=== PATIENT | female | born 1990 | race Caucasian/White ===

== ENCOUNTER 2017-01-23 16:31 | Emergency (ER) | payer OTHER ==
--- NOTE | 2017-01-27 13:43 | ER ---
ADMIT: 01/23/2017 RM/LOC: ER [facility] MR#: [id number] [address] [id number] NAJMA STEVENS [address] [place] [address] Emergency Room Report SEX: F AGE: 26 : 1990 DATE: 01/23/2017 HISTORY OF PRESENT ILLNESS: The patient is a 26-year-old 13-week female with a migraine headache. She states it is a typical headache that started at 7 a.m. yesterday. She has had it all day today. She reports having some fever, but she states she has been treated for UTI and is taking Macrobid. She gets chronic UTIs with this and has been seen for this in the past week. She called the OB nurse of Dr. Cool's practice and was told by the middle school band teacher to come to the emergency room for hydration and possibly more medication to help with the headache. The patient drove herself to the emergency room. She is accompanied by a daughter. PHYSICAL EXAMINATION: VITAL SIGNS: 120/71, heart rate 100, respirations 16, temp 99, O2 sats 97%. GENERAL: She is alert, mildly anxious. HEENT: She does have some photophobia. No meningismus. NECK: Supple and normal inspection. RESPIRATION: No distress. Breath sounds are normal. CVS: Regular in rate and rhythm. ABDOMEN: Nontender. SKIN: Good color and turgor. EXTREMITIES: Nontender. NEUROLOGIC: Oriented x4. LABORATORY DATA: CBC within normal limits 7.8 white count, hematocrit is 36.1, potassium 3.6. No repeat in the urine as she has been treated with antibiotics presently. She did receive 1-1/2 bags of fluids of normal saline, 4 mg of Zofran, and 25 of Benadryl, and finally she states that she is improved enough to go home. CLINICAL IMPRESSION: Headache migraine in 13 weeks. PLAN: Instructions to go home and rest. Follow up with PCP next week. Keep hydrated and continue prenatals. Follow up with Dr. Cool. MILI Myers / Vladimir Hernandez MD / gabriella JOB #: [id number] CC: Ajay Henderson MD, Attending Physician Dejan Cool, Family Physician Maryann Zuleta PA-C
== END 2017-01-23 20:30 | disposition home or self-care (01) ==
LOC: ER 16:31
DX: O99.351 Diseases of the nervous system complicating pregnancy, first trimester (principal); G43.909 Migraine, unspecified, not intractable, without status migrainosus; O23.41 Unspecified infection of urinary tract in pregnancy, first trimester; Z3A.13 13 weeks gestation of pregnancy